=== PATIENT | male | born 1990 | race African-American/Black ===

== ENCOUNTER 2017-06-21 23:58 | Emergency (ER) | payer SELFPAY ==
[~2017-06-21] VITALS: Ht 185.4 cm; Wt 76.0 kg
[2017-06-21 23:59] VITALS: BP 135/76; PULSE 76; RESP 16; TEMP 98.9; O2SAT 97
[2017-06-22] MEDS ORDERED: CEPH-460 PO (00:28)
[2017-06-22] MEDS ORDERED: BACT800T5 PO (00:28)
--- NOTE | 2017-06-22 00:28 | PD ---
HPI Chief Complaint: Skin Problem Time Seen by Provider: 00:19 Travel History International Travel<30 days: No Contact w/Intl Traveler<30days: No Traveled to known affect area: No History of Present Illness HPI 27-year-old male here for evaluation of left earlobe pain and swelling as well as pain and swelling behind his left ear. Symptoms started yesterday morning after waking up. He has been squeezing the area and it has progressively become larger. He denies fevers or chills. Pain is moderate, constant, worse with palpation. No hearing changes. No trauma. Patient has holes in his ears from earrings, however the patient reports that he has not worn earrings in several years. No IVDU. PFSH Past Medical History Asthma: Yes Diminished Hearing: No Immunizations Current: Yes Past Surgical History Other Surgery: Yes (UNKNOWN SURGERY ON HEAD) Social History Alcohol Use: No Tobacco Use: No Substance Use: No Allergies-Medications (Allergen,Severity, Reaction): Coded Allergies: No Known Allergies (Unverified , 06/22/17) Review of Systems Except as stated in HPI: all other systems reviewed are Neg Physical Exam Narrative GENERAL: Well-developed, well-nourished, comfortable, no acute distress. SKIN: Focused skin assessment warm/dry. HEAD: Atraumatic. Normocephalic. EYES: Pupils equal and round. No scleral icterus. No injection or drainage. ENT: Left earlobe with moderate swelling with moderate tenderness without fluctuance. There is a hole in the center of the earlobe from previous earring. There is mild warmth and erythema. No anterior propulsion of the ear. There is 1 palpable posterior radicular lymph node on the left. NECK: Trachea midline. No JVD. No nuchal rigidity. CARDIOVASCULAR: Regular rate and rhythm. RESPIRATORY: No accessory muscle use. Clear to auscultation. Breath sounds equal bilaterally. NEUROLOGICAL: Awake and alert. No obvious cranial nerve deficits. Motor grossly within normal limits. Normal speech. PSYCHIATRIC: Appropriate mood and affect; insight and judgment normal. Data Data Last Documented VS Vital Signs Date Time Temp Pulse Resp B/P (MAP) Pulse Ox O2 Delivery O2 Flow Rate FiO2 06/21/17 23:59 98.9 76 16 135/76 (95) 97 Room Air Orders Orders Sulfamet-Trimeth Ds 800-160 Mg (Bactrim (06/22/17 00:30) Cephalexin (Keflex) (06/22/17 00:30) Ibuprofen (Motrin) (06/22/17 00:30) MDM Medical Decision Making Medical Screen Exam Complete: Yes Emergency Medical Condition: Yes Differential Diagnosis Cellulitis, abscess Narrative Course This is a 27-year-old male with signs and symptoms of left earlobe cellulitis. No physical exam findings at this time to suggest an abscess. Patient will be started on oral antibiotics and advised to apply warm compresses. PMD follow- up in the next 2-3 days. He was informed on when to return to the emergency department. He verbalizes understanding and agreement with plan. Diagnosis Primary Impression: Cellulitis of left earlobe Referrals: [facility] 2 days Additional Instructions: Follow-up with a primary care physician this week. Take antibody as prescribed. Return to the emergency department for worsening symptoms or any other concerns. Scripts Cephalexin (Keflex) 500 Mg Cap 500 MG PO Q8H for Infection, #30 CAP 0 Refills Prov: Westley Epperson MD 06/22/17 Sulfamethoxazole-Trimethoprim (Bactrim DS) 800-160 Mg Tab 1 TAB PO BID for Infection, #20 TAB 0 Refills Prov: Westley Epperson MD 06/22/17 Disposition: 01 DISCHARGE HOME Condition: Stable Westley Epperson MD Jun 22, 2017 00:28
[2017-06-22] MEDS ORDERED: IBUPROFEN 600 MG TAB PO ONE (00:30)
[2017-06-22] MEDS ORDERED: CEPHALEXIN MONOHYDRATE 500 MG CAP PO ONE (00:30)
[2017-06-22] MEDS ORDERED: SULFAMETHOXAZOLE-TRIMETHOPRIM DS 800-160 MG TAB PO ONE (00:30)
== END 2017-06-22 01:13 | disposition home or self-care (01) ==
LOC: NEPE 23:58
DX: H60.12 Cellulitis of left external ear (principal); J45.909 Unspecified asthma, uncomplicated
CPT/HCPCS: 99284